=== PATIENT | female | born 1935 | race Caucasian/White ===

== ENCOUNTER → 2018-01-17 | Outpatient (CLI) | payer MEDICARE ==
[~2018-01-17] MED LIST: CARAL PO; ESOM20CA39 PO; FOLI0.8T2 PO; GLUC100019 PO; LOSA50TA37 PO; OMEG300C3 PO; PRAV80TA21 PO
== END | disposition home or self-care (01) ==
LOC: RAH 12:56
PROVIDERS: ATTEND Family Medicine
DX: Z12.31 Encounter for screening mammogram for malignant neoplasm of breast (principal)
CPT/HCPCS: 77067

== ENCOUNTER 2019-01-06 14:27 | Emergency (ER) | payer MEDICARE ==
[~2019-01-06 14:27] MED LIST changes: -LOSA50TA37 PO; +LOSA50TA64 PO
[2019-01-06 14:58] LABS: BASOPHILS % (AUTO) 1.3 % (0.0-5.0); EOSINOPHILS % (AUTO) 2.3 % (0.0-8.0); HEMATOCRIT 39.1 % (36-48); LYMPHOCYTES % (AUTO) 23.1 % (21.0-51.0); MEAN CORPUSCULAR HEMOGLOBIN 27.3 pg (27.0-33.0); MEAN CORPUSCULAR HGB CONC 32.3 g/dL (32.0-36.0); MEAN CORPUSCULAR VOLUME 84.6 fL (79-99); MONOCYTES % (AUTO) 15.2 % (3.0-13.0); NEUTROPHILS % (AUTO) 58.1 % (40.0-77.0); PLATELET COUNT (AUTO) 355 K/uL (130-400); RED BLOOD CELL COUNT(AUTO) 4.62 MIL/uL (4.00-5.50); RED CELL DISTRIBUTION WIDTH 14.6 % (11.0-15.5); WHITE BLOOD COUNT (AUTO) 11.7 K/uL (4.8-10.8)
[2019-01-06 15:08] LABS: POTASSIUM 4.3 mmol/L (3.5-5.1)
[2019-01-06 15:13] LABS: ALBUMIN 3.1 g/dL (3.5-5.0); BILIRUBIN,TOTAL 0.2 mg/dL (0.2-1.0); TOTAL PROTEIN, SERUM 6.9 g/dL (6.0-8.3)
[2019-01-09] MEDS ORDERED: DONE10TA43 PO (13:05)
[2019-01-09] MEDS ORDERED: ROSU10TA27 PO (13:05)
[2019-01-09] MEDS ORDERED: LANS30CA55 PO ×2 (13:05→13:40)
[2019-01-09] MEDS ORDERED: LACT1CAP75 PO (13:46)
[2019-01-09] MEDS ORDERED: ASPI-555 PO (13:46)
[2019-01-09] MEDS ORDERED: BILB1CAP PO (13:46)
[2019-01-09] MEDS ORDERED: ERGO400T7 PO (13:46)
[2019-01-09] MEDS ORDERED: ASCO500T9 PO (13:46)
== END 2019-01-06 16:42 | disposition home or self-care (01) ==
LOC: EDH 14:27
DX: S51.812A Laceration without foreign body of left forearm, initial encounter (principal); S05.12XA Contusion of eyeball and orbital tissues, left eye, initial encounter; K21.9 Gastro-esophageal reflux disease without esophagitis; F03.90 Unspecified dementia, unspecified severity, without behavioral disturbance, psychotic disturbance, mood disturbance, and anxiety; Z90.710 Acquired absence of both cervix and uterus; W18.39XA Other fall on same level, initial encounter; Y93.89 Activity, other specified; Y92.89 Other specified places as the place of occurrence of the external cause; Y99.8 Other external cause status
CPT/HCPCS: 36415; 70450; 70486; 80053; 84484; 85025; 93005

== ENCOUNTER 2019-01-10 05:34 | Day surgery (SDC) | payer MEDICARE ==
[~2019-01-10] VITALS: Ht 144.8 cm; Wt 53.5 kg
[~2019-01-10 05:34] MED LIST changes: +ASCO500T9 PO; +ASPI-555 PO; +BILB1CAP PO; -CARAL PO; +DONE10TA43 PO; +ERGO400T7 PO; -ESOM20CA39 PO; -GLUC100019 PO; +LACT1CAP75 PO; +LANS30CA55 PO; -PRAV80TA21 PO; +ROSU10TA27 PO
[2019-01-10] MEDS ORDERED: SODIUM CHLORIDE 0.9% 1000ML 1,000 ML IV ONE (05:41)
[2019-01-10 06:48] VITALS: BP 117/68
[2019-01-10] MEDS ORDERED: PROPOFOL 10 MG/ML 20ML VIAL IV ONE (07:45)
[2019-01-10 08:06] VITALS: BP 96/43
[2019-01-10 08:12] VITALS: BP 82/31
[2019-01-10] MEDS ORDERED: IPRATROPIUM/ALBUTEROL SULFATE 3 ML SOLUTION IH ONE (08:15)
--- NOTE | 2019-01-10 08:16 | NUR ---
UPDATE Patient arrived with wet secretions audible to standing at bedside and non-productive cough. Her mouth was suctioned with minimal output. Lungs were clear to auscultation. Nimisha Griggs CRNA ordered to give the patient a duoneb treatment, being done at this time by writer technical publications.
[2019-01-10 08:17] VITALS: BP 99/55
[2019-01-10 08:22] VITALS: BP 95/48
[2019-01-10 08:27] VITALS: BP 103/58
== END 2019-01-10 08:49 | disposition home or self-care (01) ==
LOC: DAH 05:34 → ENDO 05:34
PROVIDERS: ATTEND Internal Medicine
DX: K29.50 Unspecified chronic gastritis without bleeding (principal); K22.70 Barrett's esophagus without dysplasia; K44.9 Diaphragmatic hernia without obstruction or gangrene; K22.2 Esophageal obstruction; K20.9 Esophagitis, unspecified; K31.89 Other diseases of stomach and duodenum; E78.5 Hyperlipidemia, unspecified; I12.9 Hypertensive chronic kidney disease with stage 1 through stage 4 chronic kidney disease, or unspecified chronic kidney disease; N18.9 Chronic kidney disease, unspecified; Z79.899 Other long term (current) drug therapy; Z90.710 Acquired absence of both cervix and uterus; Z98.890 Other specified postprocedural states; F03.90 Unspecified dementia, unspecified severity, without behavioral disturbance, psychotic disturbance, mood disturbance, and anxiety; K31.9 Disease of stomach and duodenum, unspecified
CPT/HCPCS: 43239; 43249; 88305 ×2; 94640; A4606; C1726 ×2; J2704; J7030

== ENCOUNTER → 2019-02-14 | Outpatient (CLI) | payer MEDICARE ==
[~2019-02-14] MED LIST changes: -FOLI0.8T2 PO
== END | disposition home or self-care (01) ==
LOC: RAH 15:45
PROVIDERS: ATTEND Family Medicine
DX: J44.9 Chronic obstructive pulmonary disease, unspecified (principal); M47.815 Spondylosis without myelopathy or radiculopathy, thoracolumbar region; J20.9 Acute bronchitis, unspecified
CPT/HCPCS: 71046

== ENCOUNTER → 2019-03-04 | Outpatient (CLI) | payer MEDICARE | END | disposition home or self-care (01) | LOC: RAH 09:34 | PROVIDERS: ATTEND Family Medicine | DX: Z12.31 Encounter for screening mammogram for malignant neoplasm of breast (principal) | CPT/HCPCS: 77067 ==

== ENCOUNTER → 2019-04-01 | Outpatient (CLI) | payer MEDICARE | END | disposition home or self-care (01) | LOC: RAH 15:05 | PROVIDERS: ATTEND Family Medicine | DX: S00.83XA Contusion of other part of head, initial encounter (principal); X58.XXXA Exposure to other specified factors, initial encounter; Y93.89 Activity, other specified; Y92.89 Other specified places as the place of occurrence of the external cause; Y99.8 Other external cause status | CPT/HCPCS: 70150 ==

== ENCOUNTER → 2019-05-22 | Outpatient (CLI) | payer MEDICARE ==
[~2019-05-22] MED LIST changes: -ROSU10TA27 PO; +ROSU10TA28 PO
== END | disposition home or self-care (01) ==
LOC: RAH 15:22
PROVIDERS: ATTEND Family Medicine
DX: J20.9 Acute bronchitis, unspecified (principal); K44.9 Diaphragmatic hernia without obstruction or gangrene
CPT/HCPCS: 71046

== ENCOUNTER 2019-08-03 11:32 | Inpatient (IN) | payer MEDICARE ==
[~2019-08-03] VITALS: Ht 152.4 cm; Wt 55.9 kg
[2019-08-03 11:59] LABS: BASOPHILS % (AUTO) 0.3 % (0.0-5.0); HEMATOCRIT 44.2 % (36-48); MEAN CORPUSCULAR HEMOGLOBIN 30.8 pg (27.0-33.0); MEAN CORPUSCULAR HGB CONC 34.2 g/dL (32.0-36.0); MEAN CORPUSCULAR VOLUME 90.2 fL (79-99); MONOCYTES % (AUTO) 4.8 % (3.0-13.0); NEUTROPHILS % (AUTO) 91.9 % (40.0-77.0); PLATELET COUNT (AUTO) 331 K/uL (130-400); RED CELL DISTRIBUTION WIDTH 14.5 % (11.0-15.5); WHITE BLOOD COUNT (AUTO) 20.9 K/uL (4.8-10.8)
[2019-08-03] MEDS ORDERED: ACETAMINOPHEN EXTRA STRENGTH 500 MG TABLET ONE (12:04)
[2019-08-03] MEDS ORDERED: ONDANSETRON HCL 4 MG/2 ML VIAL ONE (12:04)
[2019-08-03] MEDS ORDERED: METHYLPREDNISOLONE SOD SUCC 40MG/ML 1ML ONE (12:04)
[2019-08-03 12:07] LABS: CARBON DIOXIDE 24 mmol/L (21-32); CHLORIDE 106 mmol/L (101-111); CREATININE 0.9 mg/dL (0.5-1.5); GLOMERULAR FILTR. RATE CALC 63 mL/min (>60); GLUCOSE,RANDOM 138 mg/dL (70-105); POTASSIUM 3.4 mmol/L (3.5-5.1); SODIUM SERUM 143 mmol/L (136-145); UREA NITROGEN, BLOOD 24 mg/dL (7-18)
[2019-08-03] MEDS ORDERED: SODIUM CHLORIDE 0.9% 1000ML 1,000 ML IV ONE ×2 (12:08→18:01)
[2019-08-03 12:10] LABS: INR 1.17 (0.85-1.15); PARTIAL THROMBOPLASTIN TIME 30.4 SEC (26.3-35.5); PROTHROMBIN TIME 12.2 SEC (9.6-11.6)
[2019-08-03 12:21] LABS: ALANINE AMINOTRANSFERASE 45 U/L (12-78); ALBUMIN 3.1 g/dL (3.5-5.0); ASPARTATE AMINOTRANSFERASE 39 U/L (10-37); BILIRUBIN,TOTAL 0.5 mg/dL (0.2-1.0); CREATINE KINASE, TOTAL 61 U/L (21-232); MYOGLOBIN 27 ng/mL (10-92); TOTAL PROTEIN, SERUM 6.9 g/dL (6.0-8.3); TROPONIN I < 0.04 ng/mL (0.00-0.06)
[2019-08-03] MEDS ORDERED: CEFTRIAXONE SODIUM 2 GM VIAL ONE (13:02)
[2019-08-03] MEDS ORDERED: SODIUM CHLORIDE 0.9% 100 ML IV ONE (13:02)
[2019-08-03 13:08] LABS: APPEARANCE,URINE Clear (CLEAR); BILIRUBIN,URINE Negative (NEGATIVE); COLOR,URINE Yellow (YELLOW); GLUCOSE, URINE (UA) Negative (NEGATIVE); KETONES,URINE Negative (NEGATIVE); LEUKOCYTE ESTERASE ,URINE Negative (NEGATIVE); NITRATE,URINE Negative (NEGATIVE); OCCULT BLOOD,URINE Moderate (NEGATIVE); PROTEIN,URINE Negative (NEGATIVE); UROBILINOGEN,URINE 0.2 mg/dL (0.2-1.0)
[2019-08-03 13:32] LABS: BACTERIA,URINE Rare /HPF (None Seen); RBC,URINE None Seen /HPF (0-1); WBC,URINE 0-1 /HPF (0-1)
[2019-08-03 13:33] LABS: SQUAMOUS EPITHELIAL CELL,UR None Seen /HPF (0-2)
[2019-08-03] MEDS: SODIUM CHLORIDE 0.9% 1000ML 1,000 ML IV SCH ×2 (15:54→23:16)
[2019-08-03] MEDS ORDERED: ONDANSETRON HCL 4 MG/2 ML VIAL IV PRN (16:00)
[2019-08-03] MEDS: CEFTRIAXONE SODIUM 1 GM IV SCH (16:00)
[2019-08-03] MEDS ORDERED: ACETAMINOPHEN 325 MG TAB PO PRN ×2 (16:00)
[2019-08-03] MEDS ORDERED: DIPHENHYDRAMINE HCL 25 MG CAPSULE PO PRN (16:00)
[2019-08-03] MEDS: AZITHROMYCIN 500MG+NS 250ML 250 ML IV SCH (16:00)
[2019-08-03 16:27] LABS: ABG BASE EXCESS -4.1 mmol/L (-2.0-3.0); ABG OXYGEN SATURATION 92.3 % (95.0-99.0); ABG PCO2 34 mmHg (32-45)
[2019-08-03] MEDS ORDERED: SODIUM CHLORIDE 3% FOR INHALATION 4 ML/AMP VIAL.NEB IH ONE ×2 (16:30→21:45)
[2019-08-03 16:48] LABS: MAGNESIUM 1.4 mg/dL (1.80-2.40); PHOSPHORUS 3.1 mg/dL (2.5-4.9)
[2019-08-03] MEDS ORDERED: AZITHROMYCIN 500MG+NS 250ML 250 ML IV ONE (18:00)
[2019-08-03 20:00] VITALS: BP 104/65
[2019-08-03] MEDS ORDERED: MAGNESIUM 2GM PREMIX 50ML 50 ML IV SCH (20:30)
[2019-08-03] MEDS: FAMOTIDINE/PF 20 MG/2 ML VIAL IV SCH (20:59)
[2019-08-03] MEDS ORDERED: AREDS 2 PO (21:30)
[2019-08-03] MEDS ORDERED: L.AC1CAP6 PO (21:30)
[2019-08-03] MEDS ORDERED: CHOL500045 PO (21:30)
[2019-08-03] MEDS ORDERED: MULT-1077 PO (21:30)
[2019-08-03] MEDS ORDERED: HA JOINT PO (21:30)
[2019-08-03] MEDS ORDERED: [UNRECOGNIZED DRUG - OTHER] (21:30)
[2019-08-03] MEDS: IPRATROPIUM/ALBUTEROL SULFATE 3 ML SOLUTION IH SCH (21:41)
[2019-08-03 23:00] VITALS: BP 112/63
[2019-08-04] MEDS ORDERED: SODIUM CHLORIDE 3% FOR INHALATION 4 ML/AMP VIAL.NEB IH ONE (01:05)
[2019-08-04] MEDS: IPRATROPIUM/ALBUTEROL SULFATE 3 ML SOLUTION IH SCH ×6 (01:12→22:08)
[2019-08-04 03:00] VITALS: BP 106/59
[2019-08-04] MEDS: SODIUM CHLORIDE 0.9% 1000ML 1,000 ML IV SCH (03:23)
[2019-08-04 04:44] LABS: BASOPHILS % (AUTO) 0.3 % (0.0-5.0); LYMPHOCYTES % (AUTO) 6.5 % (21.0-51.0); MEAN CORPUSCULAR HEMOGLOBIN 30.4 pg (27.0-33.0); MEAN CORPUSCULAR HGB CONC 33.9 g/dL (32.0-36.0); MEAN CORPUSCULAR VOLUME 89.8 fL (79-99); NEUTROPHILS % (AUTO) 88.2 % (40.0-77.0); PLATELET COUNT (AUTO) 298 K/uL (130-400); RED BLOOD CELL COUNT(AUTO) 3.89 MIL/uL (4.00-5.50); RED CELL DISTRIBUTION WIDTH 14.7 % (11.0-15.5); WHITE BLOOD COUNT (AUTO) 18.6 K/uL (4.8-10.8)
[2019-08-04 04:53] LABS: CREATININE 0.8 mg/dL (0.5-1.5); POTASSIUM 3.5 mmol/L (3.5-5.1)
[2019-08-04 07:30] VITALS: BP 124/67
--- NOTE | 2019-08-04 07:50 | NUR ---
ASSESSMENT ENCOUNTERED PT A&OX3, CALM COOPERATIVE AND DOES NOT APPEAR TO BE IN ANY DISTRESS NOR ANY NEURO DEFICITS BUT DOES HAVE SOME DIFFICULTY COMPLETING SENTENCES WITHOUT CATCHING HER BREATH, PLACED ON O2 2LNC, PT IS AMBULATORY, GAIT SLOW AND UNSTEADY WITH ASSISTANCE TO BEDSIDE COMMODE WITH 1-2 PERSON ASSIST. PT IS ABLE TO TOLERATE FOODS, FLUIDS AND MEDICATION WITHOUT THROAT CLEARING OR COUGH. CALL LIGHT WITHIN REACH.
[2019-08-04] MEDS: FAMOTIDINE/PF 20 MG/2 ML VIAL IV SCH ×2 (10:19→21:59)
[2019-08-04] MEDS: ENOXAPARIN SODIUM 40 MG/0.4 ML SYRINGE SQ SCH (10:20)
[2019-08-04 11:30] VITALS: BP 120/62
--- NOTE | 2019-08-04 12:06 | NUR ---
cm note called by nurse to meet with pt and POA for assistance requested for snf for rehab. met with patient and POA brisa sparks, pt states resides athome with brisa, pt alert and oriented X2, and forgetful. per POA pt independent with ambulation and adls, but has been weaker lately, no services athome. pt able to do own bath normally, POA requesting snf level of care at [facility], informed would need md orders, verbalizes understanding, explained snf to pt for rehab, and pts states agreeable to go short term for rehab. at [facility]. choice letter and [facility]AY obtained. spoke to nurse christian, states will followoup for md orders. Addendum: 08/04/19 at 1210 by MARISA RIVAS Amended: Links added.
[2019-08-04 16:00] VITALS: BP 126/76
[2019-08-04] MEDS: AZITHROMYCIN 500MG+NS 250ML 250 ML IV SCH (16:00)
[2019-08-04] MEDS: CEFTRIAXONE SODIUM 1 GM IV SCH ×2 (16:00→21:15)
[2019-08-04 20:06] VITALS: BP 136/73
[2019-08-04] MEDS: METOPROLOL TARTRATE 25 MG TAB PO SCH (21:15)
[2019-08-04] MEDS: METHYLPREDNISOLONE SOD SUCC 40MG/ML 1ML IVP SCH (21:45)
[2019-08-04] MEDS: DOXYCYCLINE 100MG+NS 250ML 250 ML IV SCH (21:45)
[2019-08-04 23:59] VITALS: BP 140/80
[2019-08-05] MEDS: IPRATROPIUM/ALBUTEROL SULFATE 3 ML SOLUTION IH SCH ×6 (01:40→22:11)
[2019-08-05 04:04] VITALS: BP 153/79
[2019-08-05 04:30] LABS: HEMATOCRIT 35.6 % (36-48); MEAN CORPUSCULAR HEMOGLOBIN 30.4 pg (27.0-33.0); MEAN CORPUSCULAR HGB CONC 33.6 g/dL (32.0-36.0); MEAN CORPUSCULAR VOLUME 90.5 fL (79-99); PLATELET COUNT (AUTO) 300 K/uL (130-400); RED BLOOD CELL COUNT(AUTO) 3.93 MIL/uL (4.00-5.50); RED CELL DISTRIBUTION WIDTH 14.8 % (11.0-15.5); WHITE BLOOD COUNT (AUTO) 15.6 K/uL (4.8-10.8)
[2019-08-05 04:47] LABS: CREATININE 0.9 mg/dL (0.5-1.5); MAGNESIUM 1.9 mg/dL (1.80-2.40); PHOSPHORUS 2.7 mg/dL (2.5-4.9); POTASSIUM 3.8 mmol/L (3.5-5.1)
[2019-08-05 04:48] LABS: B-TYPE NATRIURETIC PEPTIDE 190 pg/mL (0-100)
[2019-08-05] MEDS: METHYLPREDNISOLONE SOD SUCC 40MG/ML 1ML IVP SCH ×3 (05:34→21:24)
[2019-08-05 07:24] VITALS: BP 153/89
[2019-08-05] MEDS: FAMOTIDINE/PF 20 MG/2 ML VIAL IV SCH ×2 (10:17→21:48)
[2019-08-05] MEDS: CEFTRIAXONE SODIUM 1 GM IV SCH ×2 (10:17→21:19)
[2019-08-05] MEDS: METOPROLOL TARTRATE 25 MG TAB PO SCH ×2 (10:18→21:57)
[2019-08-05] MEDS: ENOXAPARIN SODIUM 40 MG/0.4 ML SYRINGE SQ SCH (10:18)
[2019-08-05] MEDS: DOXYCYCLINE 100MG+NS 250ML 250 ML IV SCH ×2 (10:55→21:50)
[2019-08-05 11:06] VITALS: BP 137/52
[2019-08-05 15:27] VITALS: BP 136/72
--- NOTE | 2019-08-05 15:29 | NUR ---
DC PLAN SPOKE TO REP VAZQUEZASHLY KRUSEJAMAR. INFO SENT INCLUDING [facility]. PATIENT WILL GO VIA FACILITY [facility]. PENDING AUTH. Addendum: 08/05/19 at 1530 by SHAQ HOGAN RN CM Amended: Links added.
[2019-08-05] MEDS: AZITHROMYCIN 500MG+NS 250ML 250 ML IV SCH (15:57)
--- NOTE | 2019-08-05 19:30 | NUR ---
PM NOTE PATIENT RESTING IN BED, NO S/S OF DISTRESS. DENIES PAIN OR SHORTNESS OF BREATH. PATIENT ALERT & ORIENTED X3. ON TELEMETRY PATIENT IS SINUS RHYTHM AT 92. PATIENT GETS UP WITH ASSISTANCE. IV SITE TO LEFT ANTECUBITAL INFILTRATED, FLUIDS STOPPED. WILL ASSESS FOR ANOTHER POSSIBLE IV SITE. CALL LIGHT WITHIN REACH. INSTRUCTED TO CALL FOR ASSISTANCE. VERBALIZED UNDERSTANDING.
[2019-08-05 19:44] VITALS: BP 144/64
--- NOTE | 2019-08-05 22:45 | NUR ---
CONFUSED EPISODE PATIENT HAD AN EPISODE OF CONFUSION AT THIS TIME. PATIENT OUT OF BED, IN THE RESTROOM NOW. SHE STATES "I NEED MY PHONE SO I CAN CALL AND TELL THEM IM NOT LEAVING." PATIENT CONFUSED ABOUT WHERE SHE IS AT THIS TIME. SHE STATES "THEY SAID I WOULD BE LEAVING AT 11." PATIENT HAD AN ACCIDENT AT BEDSIDE. AREA OF THE FLOOR CLEANED. REORIENTED PATIENT TO PLACE AND SITUATION. PATIENT HAS TAKEN IV OFF, IS TRYING TO PULL AT VARNER. AFTER REORIENTATION AND GETTING PATIENT BACK IN BED, SHE AGREES TO NOT PULL AT LINES ANYMORE. WILL KEEP DOOR OPEN FOR CLOSE MONITORING. BED ALARM ON. CALL LIGHT WITHIN REACH. SIDE RAILS UP X3.
[2019-08-05 23:00] VITALS: BP 152/72
[2019-08-06] MEDS: IPRATROPIUM/ALBUTEROL SULFATE 3 ML SOLUTION IH SCH ×5 (01:33→18:42)
[2019-08-06 04:00] VITALS: BP 142/64
[2019-08-06] MEDS: METHYLPREDNISOLONE SOD SUCC 40MG/ML 1ML IVP SCH ×2 (05:57→14:40)
[2019-08-06 07:25] VITALS: BP 137/70
[2019-08-06] MEDS: DOXYCYCLINE 100MG+NS 250ML 250 ML IV SCH (10:40)
[2019-08-06] MEDS: ENOXAPARIN SODIUM 40 MG/0.4 ML SYRINGE SQ SCH (10:41)
[2019-08-06] MEDS: FAMOTIDINE/PF 20 MG/2 ML VIAL IV SCH (10:41)
[2019-08-06] MEDS: CEFTRIAXONE SODIUM 1 GM IV SCH (10:41)
[2019-08-06] MEDS: METOPROLOL TARTRATE 25 MG TAB PO SCH (10:42)
[2019-08-06 11:22] VITALS: BP 129/60
[2019-08-06] MEDS ORDERED: BENZONATATE 100 MG CAPSULE PO ONE (11:22)
--- NOTE | 2019-08-06 13:42 | NUR ---
DC PLAN ACCEPTED TO [facility] 0900 [facility] NURSE AND KNOW. PATIENT WILL GO VIA FACILITY [facility]. Addendum: 08/06/19 at 1343 by SHAQ HOGAN RN CM Amended: Links added.
[2019-08-06] MEDS ORDERED: BENZONATATE 100 MG CAPSULE PO SCH (14:00)
[2019-08-06] MEDS: AZITHROMYCIN 500MG+NS 250ML 250 ML IV SCH (14:41)
[2019-08-06 14:50] VITALS: BP 122/60
[2019-08-06] MEDS ORDERED: METO25 PO (16:56)
[2019-08-06] MEDS ORDERED: METH40VI31 IVP (16:56)
[2019-08-06] MEDS ORDERED: IPRA3AMP24 IH (16:56)
[2019-08-06] MEDS ORDERED: CEFT1VIA14 IV (16:56)
[2019-08-06] MEDS ORDERED: DOXY-252 PO (16:56)
[2019-08-06] MEDS ORDERED: BENZ-51 PO (16:56)
== END 2019-08-06 19:05 | DRG 871 ==
LOC: EDH 11:32 → EDHIP 15:54 → 2DH 19:46
PROVIDERS: ADMIT Internal Medicine; ATTEND Internal Medicine
DX: A41.9 Sepsis, unspecified organism (principal); J96.01 Acute respiratory failure with hypoxia; J18.9 Pneumonia, unspecified organism; J44.0 Chronic obstructive pulmonary disease with (acute) lower respiratory infection; J44.1 Chronic obstructive pulmonary disease with (acute) exacerbation; K21.9 Gastro-esophageal reflux disease without esophagitis; Z87.891 Personal history of nicotine dependence; Z90.710 Acquired absence of both cervix and uterus; Z80.8 Family history of malignant neoplasm of other organs or systems; Z82.0 Family history of epilepsy and other diseases of the nervous system; Z82.49 Family history of ischemic heart disease and other diseases of the circulatory system; Z82.5 Family history of asthma and other chronic lower respiratory diseases; Z83.3 Family history of diabetes mellitus
CPT/HCPCS: 36415; 36600; 71045; 80048; 80053; 81001; 82550; 82803; 83605; 83735; 83874; 83880; 84100; 84145; 84484; 85025; 85027; 85610; 85730; 86738; 87040; 87088; 87449; 87486; 87581; 87633; 87798; 87804; 87880; 93005; 94640; 94664; 97039; G0378; J0456; J0696; J1650; J2405; J2920; J3475; J3490; J7030

== ENCOUNTER 2021-03-12 18:46 | Emergency (ER) | payer MEDICARE ==
[~2021-03-12] VITALS: Ht 149.9 cm; Wt 40.8 kg
[~2021-03-12 18:46] MED LIST changes: +ASCO500T20 PO; -ASCO500T9 PO; -ASPI-555 PO; +ASPI-556 PO; +BENZ-70 PO; -BILB1CAP PO; +CEFT1VIA14 IV; +CHOL500045 PO; +DOXY-252 PO; -ERGO400T7 PO; +IPRA3AMP24 IH; +L.AC1CAP6 PO; -LACT1CAP75 PO; -LANS30CA55 PO; -LOSA50TA64 PO; +METH40VI31 IVP; +METO25 PO; +MULT-1077 PO
[2021-03-12] MEDS ORDERED: ACETAMINOPHEN 325 MG TAB PO ONE ×2 (18:47→19:00)
[2021-03-12 19:35] LABS: BASOPHILS % (AUTO) 0.6 % (0.0-5.0); EOSINOPHILS % (AUTO) 1.5 % (0.0-8.0); HEMATOCRIT 41.9 % (36-48); LYMPHOCYTES % (AUTO) 30.9 % (21.0-51.0); MEAN CORPUSCULAR HEMOGLOBIN 29.6 pg (27.0-33.0); MEAN CORPUSCULAR HGB CONC 33.2 g/dL (32.0-36.0); MEAN CORPUSCULAR VOLUME 89.3 fL (79-99); NEUTROPHILS % (AUTO) 56.8 % (40.0-77.0); PLATELET COUNT (AUTO) 302 K/uL (130-400); RED BLOOD CELL COUNT(AUTO) 4.69 MIL/uL (4.00-5.50); RED CELL DISTRIBUTION WIDTH 14.3 % (11.0-15.5); WHITE BLOOD COUNT (AUTO) 10.5 K/uL (4.8-10.8)
[2021-03-12 20:05] LABS: ALBUMIN 3.3 g/dL (3.5-5.0); BILIRUBIN,TOTAL 0.3 mg/dL (0.2-1.0); CREATININE 1.1 mg/dL (0.5-1.5); POTASSIUM 3.6 mmol/L (3.5-5.1); TOTAL PROTEIN, SERUM 6.7 g/dL (6.0-8.3)
[2021-03-12 20:07] VITALS: BP 143/64
== END 2021-03-12 22:16 | disposition home or self-care (01) ==
LOC: EDH 18:46
DX: S00.33XA Contusion of nose, initial encounter (principal); Z79.82 Long term (current) use of aspirin; Z79.899 Other long term (current) drug therapy; W18.39XA Other fall on same level, initial encounter; Y93.89 Activity, other specified; Y92.89 Other specified places as the place of occurrence of the external cause; Y99.8 Other external cause status
CPT/HCPCS: 36415; 70450; 70486; 72125; 80053; 84484; 85025; 93005

== ENCOUNTER 2021-11-14 14:16 | Emergency (ER) | payer MEDICARE ==
[~2021-11-14] VITALS: Ht 157.5 cm; Wt 54.4 kg
[2021-11-14] MEDS ORDERED: MORPHINE 2 MG SYG IVP ONE (14:30)
[2021-11-14] MEDS ORDERED: FAMOTIDINE 20MG VIAL IV ONE (14:30)
[2021-11-14] MEDS ORDERED: 0.9% NACL 500ML IV.SOLN 500 ML IV ONE (14:30)
[2021-11-14] MEDS ORDERED: ONDANSETRON 4MG INJ IVP ONE (14:30)
[2021-11-14 14:35] LABS: BASOPHILS % (AUTO) 0.5 % (0.0-5.0); EOSINOPHILS % (AUTO) 0.8 % (0.0-8.0); HEMATOCRIT 36.6 % (36-48); LYMPHOCYTES % (AUTO) 16.7 % (21.0-51.0); MEAN CORPUSCULAR HEMOGLOBIN 28.1 pg (27.0-33.0); MEAN CORPUSCULAR HGB CONC 31.1 g/dL (32.0-36.0); MEAN CORPUSCULAR VOLUME 90.1 fL (79-99); MONOCYTES % (AUTO) 7.2 % (3.0-13.0); NEUTROPHILS % (AUTO) 74.4 % (40.0-77.0); PLATELET COUNT (AUTO) 570 K/uL (130-400); RED BLOOD CELL COUNT(AUTO) 4.06 MIL/uL (4.00-5.50); RED CELL DISTRIBUTION WIDTH 14.1 % (11.0-15.5); WHITE BLOOD COUNT (AUTO) 15.4 K/uL (4.8-10.8)
[2021-11-14 14:43] LABS: CREATININE 0.9 mg/dL (0.5-1.5); POTASSIUM 3.2 mmol/L (3.5-5.1)
[2021-11-14 14:58] LABS: ALBUMIN 2.8 g/dL (3.5-5.0); BILIRUBIN,TOTAL 0.3 mg/dL (0.2-1.0); TOTAL PROTEIN, SERUM 6.7 g/dL (6.0-8.3)
[2021-11-14] MEDS ORDERED: POTASSIUM BICARB/CIT AC 25 MEQ TABLET.EFF PO ONE (15:00)
[2021-11-14] MEDS ORDERED: CEFTRIAXONE 1G VIAL IV ONE (15:30)
[2021-11-14] MEDS ORDERED: CEFTRIAXONE 1G VIAL ONE (15:33)
[2021-11-14 16:26] LABS: APPEARANCE,URINE Clear (CLEAR); BILIRUBIN,URINE Negative (NEGATIVE); COLOR,URINE Yellow (YELLOW); GLUCOSE, URINE (UA) Negative (NEGATIVE); KETONES,URINE 15 mg/dL (NEGATIVE); LEUKOCYTE ESTERASE ,URINE Trace (NEGATIVE); NITRATE,URINE Negative (NEGATIVE); OCCULT BLOOD,URINE Negative (NEGATIVE); PROTEIN,URINE Negative (NEGATIVE)
[2021-11-14 16:43] LABS: BACTERIA,URINE Rare /HPF (None Seen)
[2021-11-14 16:44] LABS: MUCUS,URINE Rare LPF (None Seen); SQUAMOUS EPITHELIAL CELL,UR Few /HPF (0-2)
[2021-11-14] MEDS ORDERED: DOXY-336 PO (17:48)
[2021-11-14] MEDS ORDERED: ONDA4TAB10 PO (17:48)
[2021-11-14 17:56] VITALS: BP 114/66
[2021-11-14] MEDS ORDERED: AZITHROMYCIN 250 MG TABLET PO ONE (18:00)
== END 2021-11-14 18:15 | disposition home or self-care (01) ==
LOC: EDH 14:16
DX: J18.9 Pneumonia, unspecified organism (principal); K44.9 Diaphragmatic hernia without obstruction or gangrene; E87.6 Hypokalemia; I10 Essential (primary) hypertension; E78.00 Pure hypercholesterolemia, unspecified; F03.90 Unspecified dementia, unspecified severity, without behavioral disturbance, psychotic disturbance, mood disturbance, and anxiety; Z20.822 Contact with and (suspected) exposure to COVID-19; Z79.82 Long term (current) use of aspirin; Z79.899 Other long term (current) drug therapy
CPT/HCPCS: 36415; 71045; 74176; 80053; 81001; 83690; 84484; 85025; 87635; 93005; 96374; 96375; 99285; C9803; J0696; J2405; J3490; J7040

== ENCOUNTER 2023-11-01 03:17 | Observation (INO) | payer MEDICARE ==
[~2023-11-01] VITALS: Ht 152.4 cm; Wt 40.8 kg
[~2023-11-01 03:17] MED LIST changes: +ACET1030H MC; +AEC81 PO; +ASCO100031 PO; -ASCO500T20 PO; +ASPI-1005 PO; -ASPI-556 PO; +AUD IH; +BACI1TAB24 PO; -BENZ-70 PO; +BENZ200C53 PO; +CARB15DR2 OP; -CEFT1VIA14 IV; -CHOL500045 PO; -DOXY-252 PO; +FA/M1TAB31 PO; +FLUT1DIS4 IH; -IPRA3AMP24 IH; -L.AC1CAP6 PO; +LACT1CAP25 PO; -METH40VI31 IVP; +METO-408 PO; -METO25 PO; -MULT-1077 PO; -OMEG300C3 PO; +ONDA4TAB10 PO; +PANT40TA54 PO; -ROSU10TA28 PO; +VIT1CAPS5 PO
[2023-11-01 04:04] LABS: BASOPHILS # (AUTO) 0.07 K/uL (0.00-0.20); BASOPHILS % (AUTO) 0.4 % (0.0-5.0); EOSINOPHILS # (AUTO) 0.04 K/uL (0.00-0.70); EOSINOPHILS % (AUTO) 0.2 % (0.0-8.0); HEMATOCRIT 22.1 % (36-48); IMMATURE GRANULOCYTE ABSOLUTE 0.09 K/uL (0-1); LYMPHOCYTES # (AUTO) 1.3 K/uL (1.0-4.8); LYMPHOCYTES % (AUTO) 6.7 % (21.0-51.0); MEAN CORPUSCULAR HEMOGLOBIN 25.4 pg (27.0-33.0); MEAN CORPUSCULAR HGB CONC 29.9 g/dL (32.0-36.0); MONOCYTES # (AUTO) 0.9 K/uL (0.1-1.0); MONOCYTES % (AUTO) 4.7 % (3.0-13.0); NEUTROPHILS # (AUTO) 16.6 K/uL (1.8-7.7); NEUTROPHILS % (AUTO) 87.5 % (40.0-77.0); PLATELET COUNT (AUTO) 540 K/uL (130-400); RED CELL DISTRIBUTION WIDTH 15.5 % (11.0-15.5)
[2023-11-01] MEDS: CEFTRIAXONE 1G VIAL 1 GM in 0.9%NACL 50ML 50 ML IV ONE (04:06)
[2023-11-01] MEDS: CEFTRIAXONE 1G VIAL ONE (04:06)
[2023-11-01] MEDS: ONDANSETRON 4MG INJ IVP ONE (04:06)
[2023-11-01] MEDS: PANTOPRAZOLE 40 MG/VIAL IVP ONE (04:06)
[2023-11-01 04:13] LABS: CREATININE 0.8 mg/dL (0.5-1.5); POTASSIUM 4.1 mmol/L (3.5-5.1)
[2023-11-01 04:15] LABS: INR 0.96 (0.85-1.15); PROTHROMBIN TIME 11.2 SEC (9.6-11.6)
[2023-11-01 04:16] LABS: PARTIAL THROMBOPLASTIN TIME 23.1 SEC (26.3-35.5)
[2023-11-01 04:19] LABS: ALBUMIN 1.8 g/dL (3.5-5.0); BILIRUBIN,TOTAL 0.1 mg/dL (0.2-1.0); TOTAL PROTEIN, SERUM 4.8 g/dL (6.0-8.3)
[2023-11-01 04:24] LABS: BAND NEUTROPHILS % (MANUAL) 1 % (0-2); LYMPHOCYTES % (MANUAL) 13 % (22-44); MAN.DIFF COMMENT-IMPRESSION MANUAL DIFFERENTIAL; MONOCYTES % (MANUAL) 3 % (2-9); PLATELET MORPHOLOGY COMMENT INCREASED; SEGMENTED NEUTROPHILS % 83 % (40-70); TOTAL CELLS COUNTED 100; WBC MORPHOLOGY CONSISTENT W/DIFF
[2023-11-01] MEDS: AMP/SULBAC 3GM+NS 100ML 100 ML IV ONE (05:33)
[2023-11-01] MEDS: UNASYN 3GM VIAL IV STA (05:33)
[2023-11-01] MEDS ORDERED: ONDANSETRON 4MG INJ IV PRN (06:30)
[2023-11-01] MEDS: CEFEPIME HCL 1 GM VIAL IVPB SCH (07:36)
[2023-11-01] MEDS ORDERED: VANCOMYCIN 750MG VIAL IVPB SCH (09:00)
[2023-11-01] MEDS ORDERED: VANCOMYCIN PROTOCOL PER PHARMACY IV SCH (09:00)
[2023-11-01] MEDS ORDERED: 0.9% NACL 250ML IVPB SCH (09:00)
[2023-11-01] MEDS: PANTOPRAZOLE 40 MG/VIAL IVP SCH (09:07)
[2023-11-01 09:23] LABS: ABG BASE EXCESS 0.3 mmol/L (-2.0-3.0); ABG HCO3 22.7 mmol/L (21.0-28.0); ABG OXYGEN SATURATION 94.3 % (95.0-99.0); ABG PCO2 31 mmHg (32-45); ABG PH 7.483 (7.35-7.450); PO2, ARTERIAL BG 64.8 mmHg (83.0-108.0); VENT MODE, BG NC (ROOM AIR)
[2023-11-01] MEDS: SODIUM CHLORIDE 3% FOR INHALATION 4 ML/AMP VIAL.NEB IH ONE ×2 (09:25→14:27)
[2023-11-01 09:26] VITALS: PULSE 110; RESP 20; O2SAT 96
[2023-11-01] MEDS: VANCOMYCIN 500MG+NS 100ML 100 ML IV SCH (10:00)
[2023-11-01] MEDS: METRONIDAZOLE 500MG/100ML BAG 100 ML IVPB SCH (10:10)
[2023-11-01 11:20] LABS: HEMATOCRIT 29.6 % (36-48)
[2023-11-01 17:27] VITALS: BP 110/78; PULSE 102; RESP 20; O2SAT 99
== END 2023-11-01 17:47 | disposition hospice, home (50) ==
LOC: EDH 03:17 → EDHIP 06:03 → INTOOBSV 06:03 → EDHIP 17:47
PROVIDERS: ADMIT Internal Medicine; ATTEND Internal Medicine
DX: A41.9 Sepsis, unspecified organism (principal); D64.9 Anemia, unspecified; R11.10 Vomiting, unspecified; D72.829 Elevated white blood cell count, unspecified; E43 Unspecified severe protein-calorie malnutrition; F03.90 Unspecified dementia, unspecified severity, without behavioral disturbance, psychotic disturbance, mood disturbance, and anxiety; K44.9 Diaphragmatic hernia without obstruction or gangrene; J69.0 Pneumonitis due to inhalation of food and vomit; K22.2 Esophageal obstruction; I12.9 Hypertensive chronic kidney disease with stage 1 through stage 4 chronic kidney disease, or unspecified chronic kidney disease; N18.9 Chronic kidney disease, unspecified; R53.81 Other malaise; E78.00 Pure hypercholesterolemia, unspecified; F32.A Depression, unspecified; F41.9 Anxiety disorder, unspecified; K21.9 Gastro-esophageal reflux disease without esophagitis; Z79.82 Long term (current) use of aspirin; Z68.1 Body mass index [BMI] 19.9 or less, adult
CPT/HCPCS: 96376; 36430; 96365; 96375; 96367; 96368; 99285; 80053; 82803; 83880; 85025; 85610; 85730; 85014; 85018; 86850; 86900; 86901; 86923; 87040 ×2; 87071; 87205; 36415; 71045; 74176; 36600; 94640 ×2; 84145; G0378 ×4; P9016; J0696 ×2; J2405; J0295 ×2; C9113 ×2; J0692; J3370